=== PATIENT | female | born 1985 | race African-American/Black ===

== ENCOUNTER 2016-09-04 14:03 | Emergency (ER) | payer MEDICAID ==
[~2016-09-04] VITALS: Ht 162.6 cm; Wt 52.5 kg
[2016-09-04 14:15] VITALS: Ht 162.6 cm; Wt 52.5 kg
[2016-09-04] MEDS ORDERED: SOD CHLORIDE 0.9% 1,000 ML IV STA (18:03)
[2016-09-04] MEDS ORDERED: KETOROLAC 30 MG INJ IV STA (18:03)
[2016-09-04] MEDS ORDERED: ONDANSETRON 4 MG INJ IV STA (18:03)
[2016-09-04 19:23] LABS: ADD SCAN DIFF NO
[2016-09-04 19:25] LABS: BASOPHIL # 0.1 10^3/ul (0.0-0.1); EOSINOPHILS # 0.1 10^3/ul (0.0-0.5); EOSINOPHILS % 0.8 % (0.0-7.0); HEMATOCRIT 41.5 % (37.0-47.0); HEMOGLOBIN 14.6 g/dl (12.0-16.0); LYMPHOCYTES # 2.6 10^3/ul (0.8-2.9); LYMPHOCYTES % 40.8 % (15.0-51.0); MEAN CORPUSCULAR HEMOGLOBIN 30.2 pg (29.0-33.0); MEAN CORPUSCULAR HGB CONC 35.2 g/dl (32.0-37.0); MEAN CORPUSCULAR VOLUME 85.7 fl (82.0-101.0); MEAN PLATELET VOLUME 12.1 fl (7.4-10.4); MONOCYTE # 0.4 10^3/ul (0.3-0.9); MONOCYTES % 6.2 % (0.0-11.0); NEUTROPHIL # 3.2 10^3/ul (1.6-7.5); PLATELET COUNT 275 10^3/UL (140-415); RED BLOOD COUNT 4.84 10^6/ul (4.20-5.40); RED CELL DISTRIBUTION WIDTH 13.3 % (11.5-14.5); WHITE BLOOD COUNT 6.3 10^3/ul (4.8-10.8)
[2016-09-04 19:31] LABS: ADD UMIC NO; URINE BILIRUBIN (Dip) NEGATIVE (NEGATIVE); URINE BLOOD (Dip) NEGATIVE (NEGATIVE); URINE COLOR LT. YELLOW (YELLOW); URINE GLUCOSE (Dip) NEGATIVE (NEGATIVE); URINE KETONES (Dip) TRACE (NEGATIVE); URINE LEUKOCYTE ESTERASE (Dip) NEGATIVE (NEGATIVE); URINE NITRITE (Dip) NEGATIVE (NEGATIVE); URINE TOTAL PROTEIN (Dip) NEGATIVE (NEGATIVE); URINE UROBILINOGEN (Dip) 0.2 E.U./dL (0.1-1.0)
[2016-09-04 19:36] LABS: ALBUMIN 4.4 g/dl (3.3-4.9); POTASSIUM 3.7 mmol/L (3.5-5.1)
[2016-09-04 19:38] LABS: CREATININE 0.68 mg/dl (0.44-1.00)
[2016-09-04 19:39] LABS: ALBUMIN/GLOBULIN RATIO 1.25; CALCIUM 9.6 mg/dl (8.4-10.2); TOTAL PROTEIN 7.9 g/dl (6.1-8.1)
[2016-09-04] MEDS ORDERED: ONDA4TAB14 PO (19:59)
[2016-09-04] MEDS ORDERED: FAMO-18 PO (19:59)
[2016-09-04 20:33] VITALS: BP 125/78; PULSE 73; RESP 16; TEMP 98.4
--- NOTE | 2016-09-04 20:37 | ERD ---
ER Documentation Chief Complaint Date/Time DATE: 09/04/16 TIME: 20:33 Chief Complaint Pt with vomiting x 3 in last 24 hours. HPI This is a 31-year-old female presenting to the emergency department complaining of nausea and 3 episodes of vomiting past 2 days. Patient denies any current abdominal pain, she states that she has been feeling very anxious the past couple months ever since she tore her left meniscus. Patient states that she has been following up with the doctor, she had a MRI and go to physical therapy for her meniscus. Patient denies any dysuria, diarrhea. She states that her last menstrual period was last week. She has not taken any medications ROS All systems reviewed and are negative except as per history of present illness. Medications Home Meds Active Scripts Famotidine* (Pepcid*) 20 Mg Tablet, 20 MG PO DAILY, #20 TAB Prov:NICKY ORTEGA PA-C 09/04/16 Ondansetron (Ondansetron Odt) 4 Mg Tab.rapdis, 4 MG PO Q6H Y for NAUSEA AND/OR VOMITING, #10 TAB Prov:NICKY ORTEGA PA-C 09/04/16 Allergies Allergies: Coded Allergies: Penicillins (Verified Allergy, Unknown, rash, 09/04/16) PMhx/Soc Medical and Surgical Hx: pt denies Medical Hx, pt denies Surgical Hx Smoking Status: Never smoker Physical Exam Vitals Vital Signs Date Time Temp Pulse Resp B/P Pulse Ox O2 Delivery O2 Flow Rate FiO2 09/04/16 14:15 98.3 64 20 126/85 99 Physical Exam GENERAL: well-developed/well-nourished, in no apparent distress, non-toxic appearing HENT: NC/AT, moist mucous membranes EYES: Conjunctiva normal NECK: Supple, no lymphadenopathy PULM: CTA bilaterally, no rales, rhonchi, or wheezing heard CV: Normal S1S2, RRR, good capillary refill GI: Soft, non-distended, mild tenderness in all quadrants Normal bowel sounds, no masses or organomegaly felt on exam No gross peritonitis, no bruits Negative Rovsing, negative Alcocer, negative McBurney's point, Negative CVAT BACK: No masses EXT: No clubbing, cyanosis, or edema NEURO: Alert and Orientated SKIN: Intact, normal turgor PSYCH: Normal mood and mentation Result Diagram: 09/04/16190909/04/161909 Results 24 hrs Laboratory Tests Test 09/04/16 19:00 09/04/16 19:10 Urine Bilirubin NEGATIVE Urine Clarity CLEAR Urine Color LT. YELLOW Urine Glucose NEGATIVE% Urine Hemoglobin NEGATIVE Urine Ketones TRACE Urine Leukocyte Esterase NEGATIVE Urine Nitrite NEGATIVE Urine Specific [place] 1.010 Urine Total Protein NEGATIVE Urine Urobilinogen 0.2 E.U./dL Urine pH 6.0 Alanine Aminotransferase (ALT/SGPT) 22IU/L Albumin 4.4g/dl Albumin/Globulin Ratio 1.25 Alkaline Phosphatase 72IU/L Anion Gap 19 Aspartate Amino Transf (AST/SGOT) 38IU/L Basophils # 0.110^3/ul Basophils % 1.0% Blood Urea Nitrogen 10mg/dl Calcium Level 9.6mg/dl Carbon Dioxide Level 26mmol/L Chloride Level 100mmol/L Creatinine 0.68mg/dl Direct Bilirubin 0.00mg/dl Eosinophils # 0.110^3/ul Eosinophils % 0.8% Globulin 3.50g/dl Glucose Level 97mg/dl Hematocrit 41.5% Hemoglobin 14.6g/dl Indirect Bilirubin 1.0mg/dl Lipase 126U/L Lymphocytes # 2.610^3/ul Lymphocytes % 40.8% Mean Corpuscular Hemoglobin 30.2pg Mean Corpuscular Hemoglobin Concent 35.2g/dl Mean Corpuscular Volume 85.7fl Mean Platelet Volume 12.1fl Monocytes # 0.410^3/ul Monocytes % 6.2% Neutrophils # 3.210^3/ul Neutrophils % 51.0% Nucleated Red Blood Cells # 0.010^3/ul Nucleated Red Blood Cells % 0.0/100WBC Platelet Count 88145^3/UL Potassium Level 3.7mmol/L Red Blood Count 4.8410^6/ul Red Cell Distribution Width 13.3% Sodium Level 141mmol/L Total Bilirubin 1.0mg/dl Total Protein 7.9g/dl White Blood Count 6.310^3/ul Current Medications Medications (Trade) Dose Ordered Sig/Yossi Route PRN Reason Start Time Stop Time Status Last Admin Dose Admin Sodium Chloride (NS) 1,000 ml @ 1,000 mls/hr Q1H STAT IV 09/04/16 18:03 09/04/16 19:02 DC 2/26/17 19:01 Ondansetron HCl (Zofran Inj) 4 mg ONCE STAT IV 09/04/16 18:03 09/04/16 18:04 DC Ketorolac Tromethamine (Toradol) 30 mg ONCE STAT IV 09/04/16 18:03 09/04/16 18:04 DC Procedures/MDM This is a 31-year-old female presenting to the emergency department complaining of nausea and a few episodes of vomiting the last days. My differentials include but not limited to gastritis, anxiety, cholecystitis, pancreatitis, appendicitis or other acute abdominal conditions. On examination patient is afebrile, she appears well, she is speaking clearly. IV access established. Patient was given 1 L fluids. Lab work was drawn. CBC did not show any evidence of leukocytosis or anemia. CMP did not show any evidence of renal, liver, or electrolyte abnormalities. Lipase was normal. UA did not show any evidence of hemoglobin or urinary tract infection. Patient was given Zofran in the ED, she had improvement of nausea. When I have reassessed patient she continues to feel a little better however she states that she had an episode of regurgitation. Patient likely has gastritis, she is suitable for outpatient supportive care. Prescription for Pepcid and Zofran was provided. Discussed to follow-up with the primary care physician. Constriction of the emergency room for any worsening signs or symptoms patient understands and agrees with plan Departure Diagnosis: Primary Impression: Vomiting Vomiting type: unspecified Vomiting Intractability: non-intractable Nausea presence: with nausea Qualified Code: R11.2 - Non-intractable vomiting with nausea, unspecified vomiting type Condition: Stable Patient Instructions: What Is GERD?, Lifestyle Changes for Controlling GERD, Gastroesophageal Reflux Disease (GERD), Diet, Vomiting Or Diarrhea [6Yr-Adult], Vomiting (6Y-Adult) Referrals: NO PRIMARY,CARE PHYSICIAN (PCP) COMMUNITY CLINICS YOU HAVE RECEIVED A MEDICAL SCREENING EXAM AND THE RESULTS INDICATE THAT YOU DO NOT HAVE A CONDITION THAT REQUIRES URGENT TREATMENT IN THE EMERGENCY DEPARTMENT. FURTHER EVALUATION AND TREATMENT OF YOUR CONDITION CAN WAIT UNTIL YOU ARE SEEN IN YOUR DOCTORS OFFICE WITHIN THE NEXT 1-2 DAYS. IT IS YOUR RESPONSIBILITY TO MAKE AN APPOINTMENT FOR FOLOW-UP CARE. IF YOU HAVE A PRIMARY DOCTOR --you should call your primary doctor and schedule an appointment IF YOU DO NOT HAVE A PRIMARY DOCTOR YOU CAN CALL OUR PHYSICIAN REFERRAL HOTLINE AT IF YOU CAN NOT AFFORD TO SEE A PHYSICIAN YOU CAN CHOSE FROM THE FOLLOWING [facility] [address] [facility] [address] [facility] [address] [facility] [address] [facility] [address] [facility]. [facility]. [address] Additional Instructions: FOLLOW UP WITH YOUR PRIMARY CARE PHYSICIAN TOMORROW.Return to this facility if you are not improving as expected. Take all medicines as directed. Return to this facility if you are not improving as expected. NICKY ORTEGA PA-C Sep 04, 2016 20:37
== END 2016-09-04 21:08 | disposition home or self-care (01) ==
LOC: FTE 14:03
DX: R11.2 Nausea with vomiting, unspecified (principal)
CPT/HCPCS: 36415; 80053; 81003; 83690; 85025; J7030; Z7502; J1885; J2405